=== PATIENT | female | born 1945 | race Caucasian/White ===

== ENCOUNTER 2018-10-28 13:58 | Inpatient (IN) | payer MEDICARE ==
[2018-10-28 17:33] VITALS: BMI 26.6
[2018-10-28] MEDS ORDERED: ONDANSETRON 4 MG/2 ML VIAL IVP PRN (17:53)
[2018-10-28] MEDS ORDERED: MORPHINE SULFATE 4 MG/ML SYRINGE IVP PRN (17:54)
[2018-10-28] MEDS ORDERED: MORPHINE SULFATE 2 MG/ML SYRINGE IVP PRN (18:20)
[2018-10-28] MEDS: SODIUM CHLORIDE 0.9% 1,000 ML IV SCH (19:41)
[2018-10-28] MEDS: HYDROmorphone 0.5 MG/0.5 ML SYRINGE IVP PRN (20:32)
[2018-10-28] MEDS: PIPERACILLIN-TAZOBACTAM 3.375 GM in SODIUM CHLORIDE 0.9% 100 ML IVPB SCH (22:34)
[2018-10-29] MEDS: HYDROmorphone 0.5 MG/0.5 ML SYRINGE IVP PRN ×2 (00:59→08:54)
[2018-10-29] MEDS: PIPERACILLIN-TAZOBACTAM 3.375 GM in SODIUM CHLORIDE 0.9% 100 ML IVPB SCH ×3 (06:03→20:54)
[2018-10-29] MEDS: SODIUM CHLORIDE 0.9% 1,000 ML IV SCH ×3 (06:03→23:22)
[2018-10-29 10:02] LABS: Basophils % (A) 0 %; Eosinophils % (A) 0 %; HCT 42.1 % (34.0-46.0); HGB 13.1 gm/dL (11.4-16.0); Lymphocytes # (A) 0.6 k/uL (1.0-4.8); Lymphocytes % (A) 4 %; MCH 27.9 pg (25.0-35.0); MCHC 31.2 g/dL (31.0-37.0); MCV 89.2 fL (80.0-100.0); Mean Platelet Volume 7.4; Monocytes # (A) 0.5 k/uL (0-1.0); Monocytes % (A) 4 %; Neutrophils # (A) 14.2 k/uL (1.3-7.7); Neutrophils % (A) 92 %; Platelet Count 175 k/uL (150-450); RBC 4.71 m/uL (3.80-5.40); RDW 14.6 % (11.5-15.5); WBC 15.5 k/uL (3.8-10.6)
[2018-10-29 10:14] LABS: ALT 29 U/L (9-52); AST 67 U/L (14-36); African American GFR (CKD) >90 (>60 ml/min/1.73 sqM); Albumin 3.3 g/dL (3.5-5.0); Alkaline Phosphatase 115 U/L (38-126); Anion Gap 8 mmol/L; Blood Urea Nitrogen 14 mg/dL (7-17); Calcium 8.7 mg/dL (8.4-10.2); Carbon Dioxide 25 mmol/L (22-30); Chloride 104 mmol/L (98-107); Glucose 113 mg/dL (74-99); Non-African American GFR(CKD) 87 (>60 ml/min/1.73 sqM); Potassium 4.2 mmol/L (3.5-5.1); Sodium 137 mmol/L (137-145); Total Bilirubin 0.9 mg/dL (0.2-1.3); Total Protein 6.3 g/dL (6.3-8.2)
[2018-10-29] MEDS ORDERED: HYDROmorphone 1 MG/ML 1 ML SYRINGE IVP PRN ×2 (10:39→10:59)
[2018-10-29] MEDS ORDERED: INDOCYANINE GREEN 25 MG VIAL IV STA (10:42)
[2018-10-29] MEDS ORDERED: KETOROLAC 30 MG/ML 1 ML VIAL IVP PRN (11:20)
--- NOTE | 2018-10-29 11:42 | P.GSCN ---
History of Present Illness Consult date: 10/29/18 Reason for Consult: Acute cholecystitis Requesting physician: Brandon Cummins History of present illness: CHIEF COMPLAINT: abdominal pain HISTORY OF PRESENT ILLNESS: 73-year-old female who was transferred from [facility] secondary to abdominal pain. Patient states she began having right upper quadrant pain on Saturday and was seen in the emergency room at [facility]. She was discharged home at that time. She reports her pain began again on Saturday and continued to worsen in severity. At that time she presented back to the hospital where she was transferred to [facility] after evaluation for possible cholecystitis. Patient reports nausea and episodes of emesis on Saturday. No further emesis since that time. Patient reports feeling feverish at home. She has been running low-grade temperatures since admission. Patient reports similar episode approximately 5 years ago and was told she was having a "gallbladder attack". Patient denies previous medical history. Patient denies previous surgical history. Patient denies taking any daily medications. She reports taking a multivitamin only. PAST MEDICAL HISTORY: Denies PAST SURGICAL HISTORY: Denies MEDICATIONS: Denies ALLERGIES: See list. SOCIAL HISTORY: No illicit drug use. REVIEW OF SYSTEMS: CONSTITUTIONAL: Reports fever. HEENT: Denies blurred vision, vision changes, or eye pain. Denies hemoptysis ENDOCRINE: Denies heat or cold intolerance. CARDIOVASCULAR: Denies chest pain or pressure. RESPIRATORY: No shortness of breath. GASTROINTESTINAL: See HPI for pertinent findings. NEURO: Denies history of seizures. PSYCH: No depression or suicidal ideation HEMATOLOGIC: Denies bleeding disorders. LYMPHATIC: The patient denies any lumps and bumps around the neck. GENITOURINARY: Denies any blood in urine or increased urinary frequency. MUSCULOSKELETAL: Denies myalgias. Denies joint swelling. Denies decreased range of motion beyond patients baseline. SKIN: Denies pruitis. Denies rash. PHYSICAL EXAM: VITAL SIGNS: Currently stable. GENERAL: Well-developed in no acute distress. HEENT: No sclera icterus. Extraocular movements grossly intact. Moist buccal mucosa. Head is atraumatic, normocephalic. Hears conversational speech. No nasal drainage. NECK: Supple without lymphadenopathy. CHEST: Non-labored respirations and equal bilateral excursions. CARDIOVASCULAR: Regular rate with regular rhythm. Palpable 2+ radial pulses. ABDOMEN: Soft. Nondistended. Tenderness upon palpation of right upper/mid abdominal quadrant MUSCULOSKELETAL: No clubbing, cyanosis or edema. NEUROLOGIC: No focal or lateralizing signs. Cranial nerves II through XII grossly intact. PSYCH: Appropriate affect. Alert and oriented to person, place and time. SKIN: Well perfused. Good skin turgor. LABORATORY DATA: Laboratory data reveals white count 15.5. Hemoglobin 13.1. Potassium 4.2. BUN 14. Creatinine 0.70. Bilirubin 0.9. AST 67. ALT 29. Alkaline phosphatase 115. IMAGING: Computed tomography scan of abdomen and pelvis completed at outside facility per radiology dictation reveals gallbladder at the upper limits of normal in size without gallbladder wall thickening or pericholecystic fluid. Multiple small calcified gallstones. ASSESSMENT: 1. Abdominal pain 2. Acute cholecystitis 3. Leukocytosis PLAN: 1. NPO. Continue IV fluids 2. Continue antibiotics 3. Obtain EKG 4. Pain control. Dilaudid PRN 5. Patient to undergo robotic laparoscopic assisted cholecystectomy today with Dr. Calderon Nurse practitioner note has been reviewed by physician. Signing provider agrees with the documented findings, assessment, and plan of care. Past Medical History Past Medical History: No Reported History History of Any Multi-Drug Resistant Organisms: None Reported Past Surgical History: Tonsillectomy Past Psychological History: No Psychological Hx Reported Smoking Status: Never smoker Past Alcohol Use History: None Reported Past Drug Use History: None Reported - Past Family History Father Family Medical History: Cancer Additional Family Medical History / Comment(s): of cancer lung/kidneys/brain. Mother Family Medical History: Congestive Heart Failure (CHF) Additional Family Medical History / Comment(s): of sepsis. Medications and Allergies Home Medications Medication Instructions Recorded Confirmed Type No Known Home Medications 10/28/18 10/28/18 History Allergies Allergy/AdvReac Type Severity Reaction Status Date / Time grass pollen Allergy Cough Verified 10/28/18 17:35 Surgical - Exam Vital Signs Temp Pulse Resp BP Pulse Ox 99.8 F H 92 18 154/86 94 L 10/28/18 16:46 10/28/18 16:46 10/28/18 16:46 10/28/18 16:46 10/28/18 16:46 Results - Labs 10/29/18 09:30 10/29/18 09:30 Abnormal Lab Results - Last 24 Hours (Table) 10/29/18 10/29/18 Range/Units 09:30 09:30 WBC 15.5 H (3.8-10.6) k/uL Neutrophils # 14.2 H (1.3-7.7) k/uL Lymphocytes # 0.6 L (1.0-4.8) k/uL Glucose 113 H (74-99) mg/dL AST 67 H (14-36) U/L Albumin 3.3 L (3.5-5.0) g/dL Diabetes panel 10/29/18 Range/Units 09:30 Sodium 137 (137-145) mmol/L Potassium 4.2 (3.5-5.1) mmol/L Chloride 104 (98-107) mmol/L Carbon Dioxide 25 (22-30) mmol/L BUN 14 (7-17) mg/dL Creatinine 0.70 (0.52-1.04) mg/dL Glucose 113 H (74-99) mg/dL Calcium 8.7 (8.4-10.2) mg/dL AST 67 H (14-36) U/L ALT 29 (9-52) U/L Alkaline Phosphatase 115 (38-126) U/L Total Protein 6.3 (6.3-8.2) g/dL Albumin 3.3 L (3.5-5.0) g/dL Calcium panel 10/29/18 Range/Units 09:30 Calcium 8.7 (8.4-10.2) mg/dL Albumin 3.3 L (3.5-5.0) g/dL Pituitary panel 10/29/18 Range/Units 09:30 Sodium 137 (137-145) mmol/L Potassium 4.2 (3.5-5.1) mmol/L Chloride 104 (98-107) mmol/L Carbon Dioxide 25 (22-30) mmol/L BUN 14 (7-17) mg/dL Creatinine 0.70 (0.52-1.04) mg/dL Glucose 113 H (74-99) mg/dL Calcium 8.7 (8.4-10.2) mg/dL Adrenal panel 10/29/18 Range/Units 09:30 Sodium 137 (137-145) mmol/L Potassium 4.2 (3.5-5.1) mmol/L Chloride 104 (98-107) mmol/L Carbon Dioxide 25 (22-30) mmol/L BUN 14 (7-17) mg/dL Creatinine 0.70 (0.52-1.04) mg/dL Glucose 113 H (74-99) mg/dL Calcium 8.7 (8.4-10.2) mg/dL Total Bilirubin 0.9 (0.2-1.3) mg/dL AST 67 H (14-36) U/L ALT 29 (9-52) U/L Alkaline Phosphatase 115 (38-126) U/L Total Protein 6.3 (6.3-8.2) g/dL Albumin 3.3 L (3.5-5.0) g/dL Assessment and Plan (1) Acute cholecystitis Current Visit: Yes Status: Acute Code(s): K81.0 - ACUTE CHOLECYSTITIS SNOMED Code(s): 51255223 (2) RUQ pain Current Visit: Yes Status: Acute Code(s): R10.11 - RIGHT UPPER QUADRANT PAIN SNOMED Code(s): 559849128
[2018-10-29] MEDS: PANTOPRAZOLE 40 MG/10 ML VIAL IVP SCH (11:48)
--- NOTE | 2018-10-29 12:34 | P.HPIM ---
History of Present Illness 71-year-old wasn't female was a transfer from [facility] after she presented there with the right upper quadrant abdominal pain sharp in nature severe nonradiating worsens with deep breathing. Patient started having thing this pain yesterday. Patient clinically appears to have cholecystitis and surgery was consult. Patient does have leukocytosis and mild low-grade fever and was started on Zosyn here empirically. Patient denied any diarrhea hematemesis much easier Review of Systems REVIEW OF SYSTEMS: CONSTITUTIONAL: No fever, no malaise, no fatigue. HEENT: No recent visual problems or hearing problems. Denied any sore throat. CARDIOVASCULAR: No chest pain, orthopnea, PND, no palpitations, no syncope. PULMONARY: No shortness of breath, no cough, no hemoptysis. GASTROINTESTINAL: No diarrhea, NEUROLOGICAL: No headaches, no weakness, no numbness. HEMATOLOGICAL: Denies any bleeding or petechiae. GENITOURINARY: Denies any burning micturition, frequency, or urgency. MUSCULOSKELETAL/RHEUMATOLOGICAL: Denies any joint pain, swelling, or any muscle pain. ENDOCRINE: Denies any polyuria or polydipsia. The rest of the 14-point review of systems is negative. Past Medical History Past Medical History: No Reported History History of Any Multi-Drug Resistant Organisms: None Reported Past Surgical History: Tonsillectomy Past Psychological History: No Psychological Hx Reported Smoking Status: Never smoker Past Alcohol Use History: None Reported Past Drug Use History: None Reported - Past Family History Father Family Medical History: Cancer Additional Family Medical History / Comment(s): of cancer lung/kidneys/brain. Mother Family Medical History: Congestive Heart Failure (CHF) Additional Family Medical History / Comment(s): of sepsis. Medications and Allergies Home Medications Medication Instructions Recorded Confirmed Type No Known Home Medications 10/28/18 10/28/18 History Allergies Allergy/AdvReac Type Severity Reaction Status Date / Time grass pollen Allergy Cough Verified 10/28/18 17:35 Physical Exam Vitals: Vital Signs Temp Pulse Resp BP Pulse Ox 10/29/18 08:00 20 10/29/18 04:20 99.5 F 92 20 130/74 92 L 10/28/18 21:40 99.2 F 96 20 135/79 94 L 10/28/18 16:46 99.8 F H 92 18 154/86 94 L Intake and Output 10/28/18 10/29/18 10/29/18 22:59 06:59 14:59 Intake Total 825 Balance 825 Intake: Intake, IV Titration 825 Amount Piperacillin-Tazobactam 3 25 .375 gm In Sodium Chloride 0.9% 100 ml @ 25 mls/hr IVPB Q8H HIRAM Rx#: [id number] Sodium Chloride 0.9% 1, 800 000 ml @ 100 mls/hr IV . Q10H HIRAM Rx#:[id number] Other: Voiding Method Toilet # Voids 0 Weight 74.843 kg PHYSICAL EXAMINATION: GENERAL: The patient is alert and oriented x3, not in any acute distress. Well developed, well nourished. HEENT: Pupils are round and equally reacting to light. EOMI. No scleral icterus. No conjunctival pallor. Normocephalic, atraumatic. No pharyngeal erythema. No thyromegaly. CARDIOVASCULAR: S1 and S2 present. No murmurs, rubs, or gallops. PULMONARY: Chest is clear to auscultation, no wheezing or crackles. ABDOMEN: Tenderness in the right upper quadrant positive Burleson's sign no rebound or rigidity. MUSCULOSKELETAL: No joint swelling or deformity. EXTREMITIES: No cyanosis, clubbing, or pedal edema. NEUROLOGICAL: Gross neurological examination did not reveal any focal deficits. SKIN: No rashes. Results CBC & Chem 7: 10/29/18 09:30 10/29/18 09:30 Labs: Abnormal Lab Results - Last 24 Hours (Table) 10/29/18 10/29/18 Range/Units 09:30 09:30 WBC 15.5 H (3.8-10.6) k/uL Neutrophils # 14.2 H (1.3-7.7) k/uL Lymphocytes # 0.6 L (1.0-4.8) k/uL Glucose 113 H (74-99) mg/dL AST 67 H (14-36) U/L Albumin 3.3 L (3.5-5.0) g/dL Thrombosis Risk Factor Assmnt - Choose All That Apply Any of the Below Risk Factors Present?: Yes Each Risk Factor Represents 2 Points: Age 61-74 years Thrombosis Risk Factor Assessment Total Risk Factor Score: 2 Thrombosis Risk Factor Assessment Level: Low Risk Assessment and Plan Plan: -Possible acute cholecystitis: Continue Zosyn patient was started on Toradol along with GI prophylaxis patient is already getting Dilaudid quite often. Patient undergo cholecystectomy today. -Leukocytosis: Secondary to cholecystitis -DVT prophylaxis early ambulation after surgery
[2018-10-29] MEDS ORDERED: IV FLUID CONTINUATION 1,000 ML IV ONE (13:29)
[2018-10-29] MEDS ORDERED: ONDANSETRON 4 MG/2 ML VIAL IVP ONE (13:36)
[2018-10-29] MEDS ORDERED: NEOSTIGMINE 1 MG/ML 10 ML VIAL ONE (16:31)
[2018-10-29] MEDS ORDERED: GLYCOPYRROLATE 0.2 MG/ML 2 ML VIAL ONE (16:31)
[2018-10-29] MEDS ORDERED: LIDOCAINE 1% INJ 10MG/ML (20 ML MDV) ONE (16:31)
[2018-10-29] MEDS ORDERED: HYDROmorphone (PF) 1 MG/ML ONE (16:31)
[2018-10-29] MEDS ORDERED: PROPOFOL 10 MG/ML 20 ML VIAL IV ONE (16:31)
[2018-10-29] MEDS ORDERED: ROCURONIUM BROMIDE 10 MG/ML 10 ML VIAL IV ONE (16:31)
[2018-10-29] MEDS ORDERED: ONDANSETRON 4 MG/2 ML VIAL ONE (16:31)
[2018-10-29] MEDS ORDERED: fentaNYL (PF) 50 MCG/ML 2 ML AMP ONE (16:31)
[2018-10-29] MEDS ORDERED: MIDAZOLAM 2 MG/2 ML VIAL ONE (16:31)
[2018-10-29] MEDS ORDERED: KETOROLAC 30 MG/ML 1 ML VIAL ONE (16:31)
[2018-10-29] MEDS ORDERED: SUCCINYLCHOLINE CHLORIDE 100 MG/5 ML SYR IV ONE (16:31)
[2018-10-29] MEDS ORDERED: BUPIVACAIN-EPI 0.25%-1:200,000 30 ML VIAL SQ ONE (16:45)
[2018-10-29] MEDS ORDERED: INDOCYANINE GREEN 25 MG VIAL IV ONE (16:45)
[2018-10-29] MEDS ORDERED: SODIUM CHLORIDE 0.9% 50 ML with ceFAZolin 2,000 MG IV ONE ×4 (17:06)
[2018-10-29] MEDS ORDERED: LACTATED RINGERS 1,000 ML IV ONE (18:11)
[2018-10-29] MEDS ORDERED: NALOXONE 0.4 MG/ML 1 ML VIAL IV PRN (19:42)
[2018-10-29] MEDS ORDERED: ACETAMINOPHEN TAB 325 MG TAB PO PRN (19:42)
--- NOTE | 2018-10-29 19:46 | P.OP ---
Date of Procedure: 10/29/18 Description of Procedure: Date of Procedure: 10/29/18 SURGEON: GABRIELLE CALDERON MD PREOPERATIVE DIAGNOSES: 1. Acute cholecystitis with localized peritonitis 2. Sepsis POSTOPERATIVE DIAGNOSES: 1. Acute cholecystitis with localized peritonitis 2. Sepsis 3. Purulent necrotic acute cholecystitis with localized perforation OPERATION: 1. Robotic-assisted da Pablo Xi laparoscopic cholecystectomy, multiport with FIREFLY 2. Placement of #19 Edmond-Quintero drain Anesthesia: GETA, local Surgeon: Gabrielle Calderon Estimated Blood Loss (ml): 50 Pathology: other (Gallbladder and gallbladder fluid) Condition: stable Disposition: floor OPERATIVE FINDINGS: 1. Purulent necrotic acute cholecystitis with localized perforation INDICATIONS: The patient is a 73-year-old female who presents with acute right upper quadrant abdominal pain. Surgical intervention with a laparoscopic cholecystectomy was described at length including injury to the biliary tree, bleeding, infection, need for further surgery. Informed consent was obtained. Robotic assisted laparoscopic approach was described. Benefits and risks of the procedure including but not limited to bleeding, infection, injury to the biliary tree was described. Informed consent was obtained. DESCRIPTION OF PROCEDURE: Patient was brought to the operating room, placed in supine position. After general induction, the abdomen had been prepped and draped in standard sterile fashion. The robotic da Pablo XI system was primed. After a timeout protocol was performed, the patient had been prepped and draped in standard sterile fashion. The patient was injected with indocyanine green. A 5 mm 0 degrees laparoscopic trocar entry was performed along the left upper quadrant. The abdomen insufflated to 15 mmHg pressure which she tolerated well. Diagnostic laparoscopy demonstrated no injury to bowel viscera or mesentery. The gallbladder was completely encased in omentum with localized perforation. Next, two 8 mm robotic ports were placed along the right upper abdomen. The camera 8-mm port was maintained along the epigastrium. Another 8 mm port was placed along the left upper abdominal wall after exchanging the 5 mm port. Please note that the ports were placed at least 10 to 15 cm away from the target anatomy of the gallbladder. The robot was docked along the left lateral abdomen. The patient was repositioned in reverse Trendelenburg position. Using a grasper for arm 3, a grasper for arm 4, including hook cautery for arm 1, the robotic system was docked and primed as described. Instruments were interchanged by the assistant professor of spanish including hook cautery, Bovie cautery and clip appliers. I had sat at the console. Adhesions were identified along the infundibulum of the gallbladder and addressed using hook cautery. The gallbladder fundus was retracted over the dome of the liver. Initial attention was brought to the infundibulum which was gently retracted in the inferior lateral approach. The cystic structures were completely obscured with edematous infundibulum and fatty tissue. A dome down technique was performed removing the gallbladder from the hepatic fossa. Additionally the gallbladder was intrahepatic adding complexity to the case. The gallbladder wall was completely necrotic with purulence including localized perforation to the hepatic fossa. Additionally, firefly confirmed acute cholecystitis with nonvisualization of the gallbladder. Separately with the severe edema at the cystic structures, dissection was performed at the infundibulum and prepared for resection. The port along the left upper quadrant was exchanged for a 12 mm port. A green 45 mm robotic stapler was used to divide the gallbladder at the infundibulum. Electro-Bovie cautery was used to remove the gallbladder from the hepatic fossa. Hemostasis was checked and found to be adequate. The abdomen was irrigated with 1 L normal saline until solution was clear. A round #19 drain was placed at the hepatic fossa and exited via the right lateral abdominal wall with a 2-0 nylon stitch and bulb suction. The robot was undocked. I re-scrubbed into the case. Using a 10 mm Endo Catch bag via the left upper quadrant incision, the specimen was removed from the abdominal cavity. All pneumoperitoneum instruments were evacuated from the abdominal cavity. The incisions were reapproximated using 4-0 Monocryl in an interrupted subcuticular fashion. Fascial defects were less than 8 mm in size. Please note along the trocar sites, local anesthetic was placed as a field block prior to insertion of all instruments. The skin was cleansed with dilute hydrogen peroxide. Liquid glue was applied to the skin. Optifoam dressing was placed along the left upper quadrant and JADYN drain site. At the end of the procedure needle, sponge, and instrument count had been verified correct by the surgical services assistant. The patient was transferred to postanesthesia care unit in stable condition. Console time over 90 minutes
[2018-10-29] MEDS: HEPARIN SODIUM,PORCINE 5,000 UNIT/ML 1 ML VIAL SQ SCH (23:27)
[2018-10-30] MEDS: PIPERACILLIN-TAZOBACTAM 3.375 GM in SODIUM CHLORIDE 0.9% 100 ML IVPB SCH ×3 (05:38→21:31)
[2018-10-30] MEDS: HYDROmorphone 0.5 MG/0.5 ML SYRINGE IVP PRN ×2 (05:39→11:36)
[2018-10-30] MEDS: PANTOPRAZOLE 40 MG/10 ML VIAL IVP SCH (07:57)
[2018-10-30] MEDS: HEPARIN SODIUM,PORCINE 5,000 UNIT/ML 1 ML VIAL SQ SCH ×2 (07:58→15:46)
[2018-10-30] MEDS ORDERED: HYDROcodone/APAP 5-325MG 1 EACH TAB PO PRN (08:41)
[2018-10-30 09:04] LABS: Basophils % (A) 0 %; Eosinophils % (A) 0 %; Hypochromasia Slight; Lymphocytes # (A) 0.8 k/uL (1.0-4.8); Lymphocytes % (A) 8 %; MCH 28.4 pg (25.0-35.0); MCHC 31.6 g/dL (31.0-37.0); MCV 89.8 fL (80.0-100.0); Mean Platelet Volume 8.3; Monocytes # (A) 0.5 k/uL (0-1.0); Monocytes % (A) 5 %; Neutrophils # (A) 8.8 k/uL (1.3-7.7); Neutrophils % (A) 87 %; Platelet Count 157 k/uL (150-450); RBC 4.23 m/uL (3.80-5.40); WBC 10.2 k/uL (3.8-10.6)
[2018-10-30 09:16] LABS: ALT 62 U/L (9-52); AST 98 U/L (14-36); African American GFR (CKD) >90 (>60 ml/min/1.73 sqM); Albumin 2.6 g/dL (3.5-5.0); Alkaline Phosphatase 103 U/L (38-126); Anion Gap 7 mmol/L; Blood Urea Nitrogen 18 mg/dL (7-17); Calcium 7.9 mg/dL (8.4-10.2); Carbon Dioxide 25 mmol/L (22-30); Chloride 106 mmol/L (98-107); Glucose 91 mg/dL (74-99); Magnesium 2.1 mg/dL (1.6-2.3); Non-African American GFR(CKD) 85 (>60 ml/min/1.73 sqM); Sodium 138 mmol/L (137-145); Total Bilirubin 0.7 mg/dL (0.2-1.3); Total Protein 5.4 g/dL (6.3-8.2)
--- NOTE | 2018-10-30 10:06 | P.PN ---
<Deya Vidal A - Last Filed: 10/30/18 09:59> Subjective Progress Note Date: 10/30/18 CHIEF COMPLAINT: abdominal pain HISTORY OF PRESENT ILLNESS: Patient is s/p robotic cholecystectomy. Patient was found to have cortical quadrant peritonitis and acute perforated necrotic chol ecystitis. POD #1. Patient continues to complain of pain this morning, rating 6/10, but reports it is surgical pain today and is overall improved from yesterday. He is tolerating clear liquids. Does not want diet advanced at this time. Denies nausea or vomiting. She has been up to the bathroom today to void. WBC 10.2. Hemoglobin 12.0. vital signs haven't stable. She is afebrile. PHYSICAL EXAM: VITAL SIGNS: Reviewed. GENERAL: Well-developed in no acute distress. HEENT: No sclera icterus. Extraocular movements grossly intact. Moist buccal mucosa. Head is atraumatic, normocephalic. Hears conversational speech. No nasal drainage. NECK: Supple without lymphadenopathy. CHEST: Non-labored respirations and equal bilateral excursions. CARDIOVASCULAR: Regular rate with regular rhythm. Palpable 2+ radial pulses. ABDOMEN: Soft. Nondistended. appropriate surgical tenderness. Surgical incision sites clean dry and intact without drainage or signs of infection. right-sided JADYN drain with serosanguineous drainage. MUSCULOSKELETAL: No clubbing, cyanosis or edema. NEUROLOGIC: No focal or lateralizing signs. Cranial nerves II through XII grossly intact. PSYCH: Appropriate affect. Alert and oriented to person, place and time. SKIN: Well perfused. Good skin turgor. ASSESSMENT: 1. Abdominal pain 2. Acute cholecystitis 3. Leukocytosis PLAN: 1. Continue clear liquid diet 2. Continue antibiotics 3. Incentive spirometer ordered. patient encouraged to use 10 times an hour. 4. Pain control. [place] added to regimen. Limit use of IV narcotics if patient is able to tolerate 5. Activity as tolerated Nurse practitioner note has been reviewed by physician. Signing provider agrees with the documented findings, assessment, and plan of care. Objective - Vital Signs Vital signs: Vital Signs Temp 98.1 F 10/30/18 05:15 Pulse 79 10/30/18 05:15 Resp 16 10/30/18 08:00 BP 116/72 10/30/18 05:15 Pulse Ox 99 10/30/18 05:15 Intake & Output 10/29/18 10/30/18 10/30/18 18:59 06:59 18:59 Intake Total 1550 100 Output Total 50 115 1400 Balance 1500 -15 -1400 Intake: IV 1550 100 Output: Drainage 115 Right Abdomen 115 Urine 1400 Estimated Blood Loss 50 Other: Voiding Method Toilet Toilet # Voids 1 2 # Bowel Movements 0 - Labs CBC & Chem 7: 10/30/18 08:32 10/30/18 08:32 Labs: Abnormal Lab Results - Last 24 Hours (Table) 10/29/18 10/29/18 10/30/18 Range/Units 09:30 09:30 08:32 WBC 15.5 H (3.8-10.6) k/uL Neutrophils # 14.2 H 8.8 H (1.3-7.7) k/uL Lymphocytes # 0.6 L 0.8 L (1.0-4.8) k/uL BUN (7-17) mg/dL Glucose 113 H (74-99) mg/dL Calcium (8.4-10.2) mg/dL AST 67 H (14-36) U/L ALT (9-52) U/L Total Protein (6.3-8.2) g/dL Albumin 3.3 L (3.5-5.0) g/dL 10/30/18 Range/Units 08:32 WBC (3.8-10.6) k/uL Neutrophils # (1.3-7.7) k/uL Lymphocytes # (1.0-4.8) k/uL BUN 18 H (7-17) mg/dL Glucose (74-99) mg/dL Calcium 7.9 L (8.4-10.2) mg/dL AST 98 H (14-36) U/L ALT 62 H (9-52) U/L Total Protein 5.4 L (6.3-8.2) g/dL Albumin 2.6 L (3.5-5.0) g/dL Microbiology - Last 24 Hours (Table) 10/29/18 19:14 Gram Stain - Preliminary Abdomen Wound Culture - Preliminary 10/29/18 19:14 Anaerobic Culture - Preliminary Abdomen Assessment and Plan (1) Acute cholecystitis Current Visit: Yes Status: Acute Code(s): K81.0 - ACUTE CHOLECYSTITIS SNOMED Code(s): 03277231 (2) RUQ pain Current Visit: Yes Status: Acute Code(s): R10.11 - RIGHT UPPER QUADRANT PAIN SNOMED Code(s): 746305653 <Danielle Calderon N - Last Filed: 10/30/18 22:45> Subjective Patient seen and evaluated. Drainage more serous than sanguinous. Continue IV antibiotics and JADYN drain upon discharge. Will advance diet as tolerated. Will monitor LFTs. Objective - Vital Signs Vital signs: Vital Signs Temp 99.6 F 10/30/18 20:39 Pulse 88 10/30/18 20:39 Resp 18 10/30/18 20:39 BP 122/72 10/30/18 20:39 Pulse Ox 92 L 10/30/18 20:39 Intake & Output 10/30/18 10/30/18 10/31/18 06:59 18:59 06:59 Intake Total 100 120 Output Total 115 1570 Balance -15 -1450 Weight 74.843 kg Intake: IV 100 Oral 120 Output: Drainage 115 170 Right Abdomen 115 170 Urine 1400 Other: Voiding Method Toilet # Voids 2 2 # Bowel Movements 0 - Labs CBC & Chem 7: 10/30/18 08:32 10/30/18 08:32 Labs: Abnormal Lab Results - Last 24 Hours (Table) 10/30/18 10/30/18 Range/Units 08:32 08:32 Neutrophils # 8.8 H (1.3-7.7) k/uL Lymphocytes # 0.8 L (1.0-4.8) k/uL BUN 18 H (7-17) mg/dL Calcium 7.9 L (8.4-10.2) mg/dL AST 98 H (14-36) U/L ALT 62 H (9-52) U/L Total Protein 5.4 L (6.3-8.2) g/dL Albumin 2.6 L (3.5-5.0) g/dL Microbiology - Last 24 Hours (Table) 10/29/18 19:14 Gram Stain - Preliminary Abdomen Wound Culture - Preliminary Gram Neg Bacilli 10/29/18 19:14 Anaerobic Culture - Preliminary Abdomen
[2018-10-30] MEDS: SODIUM CHLORIDE 0.9% 1,000 ML IV SCH ×2 (11:34→21:31)
[2018-10-30] MEDS: HYDROmorphone 1 MG/ML 1 ML SYRINGE IVP PRN ×2 (15:48→21:31)
--- NOTE | 2018-10-31 00:09 | P.PN ---
Subjective Progress Note Date: 10/30/18 10/30/2018 This is a 73 year old female that was admitted for acute cholecystitis and is being monitored closely. Surgery is following closely. Patient underwent a cholecystectomy early this morning and is having some pain and discomfort at the surgical sites, but states that she feels much better than last night. Patient is tolerating clear liquids and states that she has drank two glasses of ice water. Patient denies any nausea or vomiting at this time. Patient states that she was up to the bathroom twice to urinate this morning. Patient denies any bowel movements at this time as she was NPO and hasn't eaten much in the last few days due to the pain. Patient is lying flat in bed in no acute distress. Abdominal JADYN drain on the right side is noted with serous fluid. Will continue to monitor. Patient states that she is passing gas. Patient denies any shortness of breath, chest pain, or palpitations at this time. Guarded prognosis. Objective - Vital Signs Vital signs: Vital Signs Temp 99.6 F 10/30/18 20:39 Pulse 88 10/30/18 20:39 Resp 18 10/30/18 20:39 BP 122/72 10/30/18 20:39 Pulse Ox 92 L 10/30/18 20:39 Intake & Output 10/30/18 10/30/18 10/31/18 06:59 18:59 06:59 Intake Total 100 120 Output Total 115 1570 Balance -15 -1450 Weight 74.843 kg Intake: IV 100 Oral 120 Output: Drainage 115 170 Right Abdomen 115 170 Urine 1400 Other: Voiding Method Toilet # Voids 2 2 # Bowel Movements 0 - Exam This is a 73year old female lying flat in bed in no acute distress. Patients vitals are stable. BP is 116/72, pulse is 79, temp is 98.1 F, resp are 16, and oxygen saturation is 99% on 2L via NC. HEENT: Normocephalic, atraumatic. Neck is supple. Pupils are reactive. Nostrils are clear. Oral cavity is moist. Ears have no drainage. Neck: supple. No JVD noted, or thyromegaly. Chest: Trachea is central. Symmetrical expansion. Cardiac: S1 and S2 are normal with no murmurs Respiratory: Lung sounds are clear to auscultation with no wheezing noted. No use of accessory muscles. Abdomen: soft, mildly tender at the surgical sites on the right side, positive for bowel sounds in all four quadrants. Musculoskeletal: no joint swelling or deformity noted on exam. Extremities: no edema or swelling noted Nervous system: no focal deficits, gait is steady. CN1-12 intact. Patient is alert and oriented x3. Skin: no rashes or lesions noted on exam - Labs CBC & Chem 7: 10/30/18 08:32 10/30/18 08:32 Labs: Abnormal Lab Results - Last 24 Hours (Table) 10/30/18 10/30/18 Range/Units 08:32 08:32 Neutrophils # 8.8 H (1.3-7.7) k/uL Lymphocytes # 0.8 L (1.0-4.8) k/uL BUN 18 H (7-17) mg/dL Calcium 7.9 L (8.4-10.2) mg/dL AST 98 H (14-36) U/L ALT 62 H (9-52) U/L Total Protein 5.4 L (6.3-8.2) g/dL Albumin 2.6 L (3.5-5.0) g/dL Microbiology - Last 24 Hours (Table) 10/29/18 19:14 Gram Stain - Preliminary Abdomen Wound Culture - Preliminary Gram Neg Bacilli 10/29/18 19:14 Anaerobic Culture - Preliminary Abdomen Assessment and Plan Assessment: Possible acute cholecystitis: Continue on Zosyn. Patient underwent cholecystectomy this morning. Leukocytosis: Secondary to cholecystitis. current WBC is 10.2 from 15.5 yesterday Elevated liver function test: ALT is 62, AST is 98, alk phos is 103. Will continue to monitor. DVT prophylaxis with early ambulation GI prophylaxis with protonix Recommendations and discussion: Recommend to continue current medication management and symptomatic treatment. Will continue to monitor closely. Continue to encourage incentive spirometer. Guarded prognosis. Surgery is following closely. Further recommendations to follow. Possible discharge in 24-48 hours. '
[2018-10-31] MEDS: HEPARIN SODIUM,PORCINE 5,000 UNIT/ML 1 ML VIAL SQ SCH ×2 (00:14→07:09)
[2018-10-31] MEDS: HYDROmorphone 1 MG/ML 1 ML SYRINGE IVP PRN ×2 (03:33→09:30)
[2018-10-31 04:36] VITALS: BP 159/83; PULSE 83; TEMP 99.7
[2018-10-31] MEDS: PIPERACILLIN-TAZOBACTAM 3.375 GM in SODIUM CHLORIDE 0.9% 100 ML IVPB SCH ×2 (06:12→13:41)
[2018-10-31] MEDS: SODIUM CHLORIDE 0.9% 1,000 ML IV SCH (07:09)
[2018-10-31] MEDS: PANTOPRAZOLE 40 MG/10 ML VIAL IVP SCH (07:09)
[2018-10-31 07:35] VITALS: RESP 18
[2018-10-31 08:43] LABS: Basophils % (A) 0 %; Eosinophils # (A) 0.1 k/uL (0-0.7); Eosinophils % (A) 1 %; HCT 34.2 % (34.0-46.0); HGB 10.8 gm/dL (11.4-16.0); Lymphocytes # (A) 0.9 k/uL (1.0-4.8); Lymphocytes % (A) 11 %; MCH 27.4 pg (25.0-35.0); MCHC 31.5 g/dL (31.0-37.0); Mean Platelet Volume 7.6; Monocytes # (A) 0.5 k/uL (0-1.0); Monocytes % (A) 6 %; Neutrophils # (A) 6.4 k/uL (1.3-7.7); Neutrophils % (A) 81 %; Platelet Count 165 k/uL (150-450); RBC 3.93 m/uL (3.80-5.40); RDW 13.5 % (11.5-15.5); WBC 7.9 k/uL (3.8-10.6)
[2018-10-31 08:53] LABS: ALT 47 U/L (9-52); AST 57 U/L (14-36); African American GFR (CKD) >90 (>60 ml/min/1.73 sqM); Albumin 2.4 g/dL (3.5-5.0); Alkaline Phosphatase 121 U/L (38-126); Anion Gap 8 mmol/L; Blood Urea Nitrogen 11 mg/dL (7-17); Calcium 7.5 mg/dL (8.4-10.2); Carbon Dioxide 23 mmol/L (22-30); Chloride 106 mmol/L (98-107); Glucose 80 mg/dL (74-99); Non-African American GFR(CKD) >90 (>60 ml/min/1.73 sqM); Potassium 3.2 mmol/L (3.5-5.1); Sodium 137 mmol/L (137-145); Total Bilirubin 0.5 mg/dL (0.2-1.3); Total Protein 4.9 g/dL (6.3-8.2)
[2018-10-31] MEDS ORDERED: POTASSIUM CHLORIDE ER 20 MEQ TAB.ER PO STA ×2 (09:06→09:31)
--- NOTE | 2018-10-31 10:30 | P.PN ---
Subjective Progress Note Date: 10/31/18 CHIEF COMPLAINT: abdominal pain HISTORY OF PRESENT ILLNESS: Patient is s/p robotic cholecystectomy. Patient was found to have cortical quadrant peritonitis and acute perforated necrotic cholecystitis. POD #2. Patient examined this morning. She is sitting up in the chair. Emotional and tearful. She does not think she is getting better and not progressing like she should. Reassurance provided to patient. She reports her pain is 6/10. Tolerating diet but reports decreased appetite. Denies nausea or vomiting. Passing flatus. Patient with low-grade temp of 99.7 this morning. Patient reports she is using her incentive spirometer. She has a loose nonproductive cough. WBC 7.9. Hemoglobin 10.8. Potassium 3.2. Bilirubin 0.5. AST 57. ALT 47. PHYSICAL EXAM: VITAL SIGNS: Reviewed. GENERAL: Well-developed in no acute distress. HEENT: No sclera icterus. Extraocular movements grossly intact. Moist buccal mucosa. Head is atraumatic, normocephalic. Hears conversational speech. No nasal drainage. NECK: Supple without lymphadenopathy. CHEST: Non-labored respirations and equal bilateral excursions. CARDIOVASCULAR: Regular rate with regular rhythm. Palpable 2+ radial pulses. ABDOMEN: Soft. Nondistended. appropriate surgical tenderness. Surgical incision sites clean dry and intact without drainage or signs of infection. right-sided JADYN drain with serous drainage. MUSCULOSKELETAL: No clubbing, cyanosis or edema. NEUROLOGIC: No focal or lateralizing signs. Cranial nerves II through XII grossly intact. PSYCH: Appropriate affect. Alert and oriented to person, place and time. SKIN: Well perfused. Good skin turgor. ASSESSMENT: 1. Abdominal pain 2. Acute cholecystitis 3. Leukocytosis, resolved PLAN: 1. Continue diet as tolerated 2. Continue antibiotics 3. Incentive spirometer ordered. patient encouraged to use 10 times an hour. 4. Pain control. Continue [place]. Decrease IV narcotic use. 5. Activity as tolerated 6. Patient states she is not ready to be discharged today. Anticipate discharge home tomorrow. Patient will be DC home with JADYN drain and follow up with Dr. Calderon on 11/11/18 Nurse practitioner note has been reviewed by physician. Signing provider agrees with the documented findings, assessment, and plan of care. Objective - Vital Signs Vital signs: Vital Signs Temp 99.7 F H 10/31/18 04:36 Pulse 83 10/31/18 04:36 Resp 18 10/31/18 07:31 BP 159/83 10/31/18 04:36 Pulse Ox 93 L 10/31/18 04:36 Intake & Output 10/30/18 10/31/18 10/31/18 18:59 06:59 18:59 Intake Total 120 Output Total 1570 60 70 Balance -1450 -60 -70 Weight 74.843 kg Intake: Oral 120 Output: Drainage 170 60 70 Right Abdomen 170 60 70 Urine 1400 Other: Voiding Method Toilet # Voids 2 2 # Bowel Movements 0 - Labs CBC & Chem 7: 10/31/18 08:01 10/31/18 08:01 Labs: Abnormal Lab Results - Last 24 Hours (Table) 10/31/18 10/31/18 Range/Units 08:01 08:01 Hgb 10.8 L (11.4-16.0) gm/dL Lymphocytes # 0.9 L (1.0-4.8) k/uL Potassium 3.2 L (3.5-5.1) mmol/L Calcium 7.5 L (8.4-10.2) mg/dL AST 57 H (14-36) U/L Total Protein 4.9 L (6.3-8.2) g/dL Albumin 2.4 L (3.5-5.0) g/dL Microbiology - Last 24 Hours (Table) 10/29/18 19:14 Gram Stain - Preliminary Abdomen Wound Culture - Preliminary Gram Neg Bacilli Assessment and Plan (1) Acute cholecystitis Current Visit: Yes Status: Acute Code(s): K81.0 - ACUTE CHOLECYSTITIS SNOMED Code(s): 17179962 (2) RUQ pain Current Visit: Yes Status: Acute Code(s): R10.11 - RIGHT UPPER QUADRANT PAIN SNOMED Code(s): 716467476
--- NOTE | 2018-10-31 12:35 | P.DS ---
Providers Date of admission: 10/28/18 16:46 Expected date of discharge: 10/31/18 Attending physician: Brandon Cummins Consults: 10/28/18 17:51 Consult Physician Routine Consulting Provider: Danielle Calderon Consult Reason/Comments: acute cholecystitis Do you want consulting provider notified?: Yes Placement Type Exists?: Yes Primary care physician: Stated None - Discharge Diagnosis(es) (1) Acute cholecystitis Current Visit: Yes Status: Acute (2) RUQ pain Current Visit: Yes Status: Acute Hospital Course: 73-year-old female who was transferred to [facility] secondary to acute cholecystitis. Patient underwent robotic cholecystectomy. Patient was found to have cortical quadrant peritonitis and acute perforated necrotic cholecystitis. Patient has been doing well postoperatively. Her pain is controlled on oral medications. She is tolerating by mouth intake. Denies nausea or vomiting. Vital signs have been stable. White count is within normal limits. She is stable for discharge home today. Prescription sent to patient's preferred pharmacy for [place] and Augmentin. Patient is to keep JADYN drain in place until follow-up appointment with Dr. Calderon. Please see EMR for further hospital c ourse details. Discharge Diagnosis: 1. Abdominal pain 2. Acute cholecystitis 3. Leukocytosis, resolve Nurse practitioner note has been reviewed by physician. Signing provider agrees with the documented findings, assessment, and plan of care. Patient Condition at Discharge: Stable Plan - Discharge Summary Discharge Rx Participant: No New Discharge Prescriptions: New Hydrocodone/Acetaminophen [[place] 5-325] 1 tab PO Q4HR PRN 3 Days #18 tab PRN Reason: Pain Amoxic-Pot Clav 875-125Mg [Augmentin 875-125] 1 tab PO Q12HR #14 tablet Discharge Medication List Amoxic-Pot Clav 875-125Mg [Augmentin 875-125] 1 tab PO Q12HR #14 tablet 10/31/18 [Rx] Hydrocodone/Acetaminophen [[place] 5-325] 1 tab PO Q4HR PRN 3 Days #18 tab 10/31/18 [Rx] Follow up Appointment(s)/Referral(s): Danielle Calderon MD [STAFF PHYSICIAN] - 11/11/18 [facility], [NON-STAFF] - 1-2 Days Patient Instructions/Handouts: Low Fat Diet (DC), [place] Drain Care (DC), Laparoscopic Cholecystectomy (GEN) Activity/Diet/Wound Care/Special Instructions: No lifting over 10 pounds in 10 days, Nov 08. Sponge bath. Low fat diet advised. Avoid bathtub soaks or getting JADYN site wet. Discharge Disposition: HOME SELF-CARE
--- NOTE | 2018-10-31 15:29 | P.PN ---
Subjective Progress Note Date: 10/31/18 10/30/2018 This is a 73 year old female that was admitted for acute cholecystitis and is being monitored closely. Surgery is following closely. Patient underwent a cholecystectomy early this morning and is having some pain and discomfort at the surgical sites, but states that she feels much better than last night. Patient is tolerating clear liquids and states that she has drank two glasses of ice water. Patient denies any nausea or vomiting at this time. Patient states that she was up to the bathroom twice to urinate this morning. Patient denies any bowel movements at this time as she was NPO and hasn't eaten much in the last few days due to the pain. Patient is lying flat in bed in no acute distress. Abdominal JADYN drain on the right side is noted with serous fluid. Will continue to monitor. Patient states that she is passing gas. Patient denies any shortness of breath, chest pain, or palpitations at this time. Guarded prognosis. 10/31/2018 Patient is sitting up in recliner in no acute distress. Patient is currently working on her incentive spirometer. Patient is just received an IV pain medication and states the pain is much better. Patient was having severe abdominal discomfort at the site of the JADYN drain. Patient states that she is passing gas but has not had a bowel movement at this time. Patient is urinating and getting up to the bathroom. Patient states that she has not much of an appetite and so she hasn't been eating very much but is drinking plenty of water and tolerated a cup of Jell-O. Patient denies any chest pain, shortness of breath, or palpitations at this time. Patient states that she has been getting up more often and moving around. Patient is waiting for her daughter to arrive to assist with washing up. Objective - Vital Signs Vital signs: Vital Signs Temp 99.7 F H 10/31/18 04:36 Pulse 83 10/31/18 04:36 Resp 18 10/31/18 07:31 BP 159/83 10/31/18 04:36 Pulse Ox 93 L 10/31/18 04:36 Intake & Output 10/30/18 10/31/18 10/31/18 18:59 06:59 18:59 Intake Total 120 Output Total 1570 60 70 Balance -1450 -60 -70 Weight 74.843 kg Intake: Oral 120 Output: Drainage 170 60 70 Right Abdomen 170 60 70 Urine 1400 Other: Voiding Method Toilet # Voids 2 2 2 # Bowel Movements 0 - Exam This is a 73year old female sitting up in the recliner in no acute distress. P atients vitals are stable. BP is 159/83, pulse is 83, temp is 99.7 F, resp are 24, and oxygen saturation is 93% on room air HEENT: Normocephalic, atraumatic. Neck is supple. Pupils are reactive. Nostrils are clear. Oral cavity is moist. Ears have no drainage. Neck: supple. No JVD noted, or thyromegaly. Chest: Trachea is central. Symmetrical expansion. Cardiac: S1 and S2 are normal with no murmurs Respiratory: Lung sounds are clear to auscultation with no wheezing noted. No use of accessory muscles. Abdomen: soft, mildly tender at the surgical sites on the right side, positive for bowel sounds in all four quadrants. JADYN drain noted on the right side. Musculoskeletal: no joint swelling or deformity noted on exam. Extremities: no edema or swelling noted. Legs are elevated up on a stool with SCDs present Nervous system: no focal deficits, gait is steady. CN1-12 intact. Patient is alert and oriented x3. Skin: no rashes or lesions noted on exam - Labs CBC & Chem 7: 10/31/18 08:01 10/31/18 08:01 Labs: Abnormal Lab Results - Last 24 Hours (Table) 10/31/18 10/31/18 Range/Units 08:01 08:01 Hgb 10.8 L (11.4-16.0) gm/dL Lymphocytes # 0.9 L (1.0-4.8) k/uL Potassium 3.2 L (3.5-5.1) mmol/L Calcium 7.5 L (8.4-10.2) mg/dL AST 57 H (14-36) U/L Total Protein 4.9 L (6.3-8.2) g/dL Albumin 2.4 L (3.5-5.0) g/dL Microbiology - Last 24 Hours (Table) 10/29/18 19:14 Gram Stain - Preliminary Abdomen Wound Culture - Preliminary Gram Neg Bacilli Assessment and Plan Assessment: Possible acute cholecystitis: Continue on Zosyn. Patient underwent cholecystectomy yesterday. Leukocytosis: Secondary to cholecystitis. current WBC is 7.9 from 10.2 yesterday Elevated liver function test: ALT is 57, AST is 47, alk phos is 121. Improving. Hypokalemia: 3.2. Will be replaced DVT prophylaxis with early ambulation and SCDs GI prophylaxis with protonix Recommendations and discussion: Recommend to continue current medication management and symptomatic treatment. Will continue to monitor closely. Continue to encourage incentive spirometer. Encouraged early ambulation. Guarded prognosis. Surgery is following closely. Further recommendations to follow. Possible discharge today, awaiting surgery clearance.
[2018-11-01] MEDS ORDERED: PANTOPRAZOLE 40 MG TABLET PO SCH (07:30)
--- NOTE | 2018-11-03 09:28 | CDI ---
Documentation Clarification Form Date: 11/03/18 From: Sapna Uribe Phone: If you have a question regarding this query, please contact Adriana Florez at [phone] between 8am and 5pm. Admit Date: 10/28/2018 4:46:00 PM Patient Name: Karlene Whalen Visit Number: [id number] Discharge Date: 10/31/2018 2:59:00 PM ATTENTION: The Clinical Documentation Specialists (CDI) and [facility] Coding Staff appreciate your assistance in clarifying documentation. Please respond to the clarification below the line at the bottom and electronically sign. The CDI & [facility] Coding staff will review the response and follow-up if needed. Please note: Queries are made part of the Legal Health Record. If you have any questions, please contact the author of this message via ITS. Dr. Sidney Velez The patient presented with acute cholecystitis. Dr. Calderon documented sepsis in the procedure note but sepsis was not documented consistently throughout the chart. History/Risk Factors: Acute perforated, necrotic cholecystitis with peritonitis. Clinical Indicators: Leukocytosis. WBC: 15.5 Lactic acid: Not tested. Blood cultures: Not tested. Vitals signs on admission: T. 99.8, P. 92, R. 18, BP 154/86 Antibiotics: IV Cefazolin, IV Zosyn IV Bolus: No bolus, IV sodium chloride at 100 mls/hr In your professional opinion, please clarify if these findings signify one of the following conditions Condition Sepsis ruled out SIRS, without underlying infectious process Severe Sepsis Septic Shock Other, please specify Unable to determine Present on Admission Yes No Sepsis MTDD
== END 2018-10-31 14:59 | disposition home health service (06) | DRG 853 ==
LOC: 4MS4W 16:46 → 3NMEDONC 10-30 14:13
PROVIDERS: ADMIT Internal Medicine; ATTEND Internal Medicine
PROC: 8E0W4CZ Robotic Assisted Procedure of Trunk Region, Percutaneous Endoscopic Approach (ICD-10-PCS; 2018-10-29)
PROC: 0FT44ZZ Resection of Gallbladder, Percutaneous Endoscopic Approach (ICD-10-PCS; principal; 2018-10-29 08:10)
DX: A41.9 Sepsis, unspecified organism (principal); K65.9 Peritonitis, unspecified; K81.0 Acute cholecystitis; K82.A2 Perforation of gallbladder in cholecystitis; K82.A1 Gangrene of gallbladder in cholecystitis; E87.6 Hypokalemia; Z91.048 Other nonmedicinal substance allergy status; Z80.1 Family history of malignant neoplasm of trachea, bronchus and lung; Z82.49 Family history of ischemic heart disease and other diseases of the circulatory system; Z80.51 Family history of malignant neoplasm of kidney; Z80.8 Family history of malignant neoplasm of other organs or systems
CPT/HCPCS: 80053; 83735; 85025; 87070; 87075; 87077; 87186; 87205; 88304

== ENCOUNTER → 2024-02-21 | Outpatient (CLI) | payer MEDICARE ==
[2024-02-21 10:04] LABS: INR 0.8 (<1.2); Partial Thromboplastin Time 23.6 sec (22.0-30.0); Prothrombin Time 9.6 sec (10.0-12.5)
[2024-02-21 15:26] LABS: HCT 44.4 % (37.2-46.3); HGB 14.1 g/dL (12.0-15.0); MCH 28.5 pg (27.0-32.0); MCHC 31.8 g/dL (32.0-37.0); MCV 89.7 FL (80.0-97.0); Mean Platelet Volume 10.5 FL (9.5-12.2); NRBC Per 100 WBC 0 X 10*3/uL (0.00-0.01); Platelet Count 278 X 10*3/uL (140-440); RBC 4.95 X 10*6/uL (4.10-5.20); RDW 13.1 % (11.5-14.5); WBC 5.35 X 10*3/uL (4.50-10.00)
[2024-02-21 16:09] LABS: ALT 24 U/L (8-44); AST 29 U/L (13-35); Albumin 4.5 g/dL (3.8-4.9); Albumin/Globulin Ratio 1.61 Ratio (1.60-3.17); Alkaline Phosphatase 135 U/L (41-126); Blood Urea Nitrogen 13.6 mg/dL (9.0-27.0); Calcium 9.5 mg/dL (8.7-10.3); Carbon Dioxide 25.2 mmol/L (21.6-31.8); Chloride 104 mmol/L (96-109); Globulin 2.8 g/dL (1.6-3.3); Glucose 95 mg/dL (70-110); Sodium 141 mmol/L (135-145); Total Bilirubin 0.5 mg/dL (0.3-1.2); Total Protein 7.3 g/dL (6.2-8.2)
== END | disposition home or self-care (01) ==
LOC: LABPAT 09:01
PROVIDERS: ATTEND Orthopaedic Surgery
DX: Z01.818 Encounter for other preprocedural examination (principal); Z22.322 Carrier or suspected carrier of Methicillin resistant Staphylococcus aureus; M16.11 Unilateral primary osteoarthritis, right hip
CPT/HCPCS: 80053; 85027; 85610; 85730; 86850; 86900; 86901; 87070; 93005

== ENCOUNTER 2024-03-02 05:39 | Day surgery (SDC) | payer MEDICARE ==
[~2024-03-02 05:39] MED LIST: TRANEXAMIC 1,000 MG/100ML-NACL 1,000 MG in SALINE 1 100ML.BAG IVPB PRN
[2024-03-02] MEDS: ACETAMINOPHEN TAB 500 MG TAB PO PRN (06:16)
[2024-03-02] MEDS: MELOXICAM 7.5 MG TAB PO PRN (06:16)
[2024-03-02] MEDS: GABAPENTIN 300 MG CAP PO PRN (06:16)
[2024-03-02] MEDS: LACTATED RINGERS 1,000 ML BAG IV STA (06:17)
[2024-03-02] MEDS: LIDOCAINE 1% (10MG/ML) FOR IV START INTRADERMA STA (06:17)
[2024-03-02] MEDS: ONDANSETRON 4 MG/2 ML VIAL IVP STA (06:18)
[2024-03-02] MEDS: DEXAMETHASONE SOD PHOSPHATE 4 MG/ML 1 ML VIAL IVP STA (06:18)
[2024-03-02] MEDS: IV FLUID CONTINUATION 1,000 ML IV ONE (06:20)
[2024-03-02] MEDS: MIDAZOLAM 2 MG/2 ML VIAL IV ONE (06:35)
[2024-03-02] MEDS: ceFAZolin 1,000 MG in SODIUM CHLORIDE 0.9% 1,000 ML IRRIGATION ONE (06:59)
[2024-03-02] MEDS: ROPIVACAINE 5 MG/ML 30 ML VIAL MISCELLANE ONE ×2 (07:27→08:00)
--- NOTE | 2024-03-02 08:06 | P.OP ---
Date of Procedure: 03/02/24 Preoperative Diagnosis: Severe osteoarthritis right hip Postoperative Diagnosis: Severe osteoarthritis right hip Procedure(s) Performed: Right total hip arthroplasty with a direct anterior approach Implants: [employer] Polarstem standard size 5 with a collar [employer] R3, 3 hole hemispherical acetabular shell, 52 mm [employer] Reflection 6.5 mm cancellus screws, 20 mm, 25 mm [employer] R3, XLPE 20 acetabular liner [employer] Oxinium femoral head 36 mm, +4 All components were press-fit. The articulation is Oxinium on polyethylene. Anesthesia: spinal Surgeon: Wesly Waters Loading Manager #1: Ca Daniel Estimated Blood Loss (ml): 150 Pathology: none sent Condition: stable Disposition: PACU Indications for Procedure: After failure of conservative treatment we discussed the surgical and nonsurgical treatment options at length. Patient wishes to proceed with a total hip arthroplasty with a direct anterior approach. Complications specific to this procedure were discussed at length, including but not limited to infection, leg length discrepancy, dislocation, nerve injury, and fracture. Covid-19 was also discussed at length with the patient, and they are aware of the current policies and procedures. The patient was given the option of delaying surgery, but they elect to proceed knowing these risks. Patient is aware of all these complications and informed consent was obtained Operative Findings: The operative findings are consistent with severe osteoarthritis of the right hip Description of Procedure: The patient was seen and evaluated in the preoperative area and the consent was reviewed. The operative site was marked with a skin marker. The patient verified the procedure and operative site. A WILLY block was placed by anesthesia in the preoperative area. The patient was then brought to the operating room and given preoperative antibiotics intravenously. 1 g of Tranexamic acid was also given intravenously. A spinal anesthetic was administered by the anesthesia department. The patient was then placed on the [place] table with the bony prominences well-padded. The hip area was then prepped with a ChloraPrep solution and draped in the usual sterile fashion. A universal timeout was then performed, which confirmed the patient's name, surgical site, ALLERGIES, and procedure being performed on the consent. Next the incision site was located at 1 cm distal and 4 cm lateral to the anterior superior iliac spine. The skin and subcutaneous tissues were sharply incised. Incision was carefully dissected down to the fascia overlying the tensor fascia abhishek muscle. This fascia was then incised in line with the muscle fibers. Care was taken to stay laterally in order to avoid injuring the lateral femoral cutaneous nerve. Next, using blunt finger dissection, the tensor fascia abhishek muscle was dissected off its investing fascia. The muscle was then carefully retracted laterally with a cobra retractor over the lateral neck of the femur. Next, the circumflex vessels were identified and cauterized using the Aquamantis device. The anterior hip capsule was then exposed. The capsule was then opened and an inverted T fashion. The retractors were then placed intracapsularly. The retractors were maintained intracapsular throughout the procedure. The proximal femur was then visualized. Fluoroscopic x-rays were then taken in order to evaluate the preoperative leg lengths. A small amount of traction was placed on the leg. The femoral neck was then osteotomized at the appropriate level above the lesser trochanter. A small wedge of bone was then removed from the remaining femoral head. Next, using a corkscrew the femoral head was removed from the acetabulum. On gross visual inspection, the femoral head had complete loss of articular cartilage and multiple periarticular osteophytes. The femoral head was then measured. Attention was then turned to the acetabulum. The acetabulum was exposed and any remaining labrum was excised. Sequential reaming of the acetabulum was performed using fluoroscopic guidance until there was a good bed of bleeding cancellus bone. When the appropriate size was reached, a trial was then placed. The position and fit of the trial was checked with fluoroscopy. The trial was then removed. Then, using fluoroscopic guidance, the final implant was impacted at 20 of anteversion and 40 of abduction, and fully seated in the acetabulum. 2 screws were then placed in the acetabulum. Again fluoroscopy was used to check position of the screws. Next, the liner was then impacted, with a 20 elevated liner located in the anterior superior quadrant. Component locking was confirmed. Attention was then directed to the femur. With the aid of the [place] table, the femur was externally rotated to approximately 130, extended, and adducted under the opposite leg. A side hook was then placed under the proximal femur, and the side hook elevator was used to elevate the proximal femur while releasing the capsule. Retractors were then placed. A capsular release was performed, as well as a release of the conjoined tendon, which afforded excellent visualization of the proximal femur. Next, a box osteotome was used to lateralize the proximal femur. A hand singer was then used to locate the femoral canal. Sequential broaching was then performed with appropriate size which afforded excellent fixation in the proximal femur. A trial was then placed with appropriate head and neck, and the hip was gently reduced with the aid of the [place] table. Fluoroscopy was then used to check position of the components, as well as to evaluate the leg lengths and offset. The leg lengths and offset were measured as closely as possible to ensure stability of the hip. The hip was then gently dislocated and the trials were then removed. Final implants were then impacted and the hip was again reduced. Final fluoroscopic x-rays confirmed that the components were in anatomic position. The leg lengths and offset were measured and were found to coincide with the trial measurements. The hip was also taken through range of motion, and found to be stable. The hip was then copiously irrigated with antibiotic solution with pulsatile lavage. The hip was then irrigated with Irrisept solution. The soft tissues were then injected with a ropivacaine solution. A second dose of 1 g of Tranexamic acid was also given intravenously. The fascia was then closed with 2-0 strata fix suture. The subcutaneous tissue was closed with 3-0 Vicryl. The subcuticular tissue was closed with 3-0 moncryl suture. The skin was then closed with Exofin skin glue. After the glue and dried, and Optifoam silver impregnated dressing was applied. The patient was then transferred to the recovery room in stable condition. The orthotics assistant NITESH Bryson was required due to the complexity of surgery, and the need for skilled litigation legal assistant for positioning, draping, exposure, retraction, and closure of the wound.
[2024-03-02] MEDS: LACTATED RINGERS 1,000 ML IV ONE (08:11)
--- NOTE | 2024-03-02 08:26 | FL ---
EXAMINATION TYPE: FL guidance operating room, XR Hip Limited RT DATE OF EXAM: 03/02/2024 8:12 AM COMPARISON: Pre Operative Images if available both CT/MRI or plain film CLINICAL INDICATION: Female, 78 years old with history of RIGHT ANTERIOR HIP; TECHNIQUE: FL guidance operating room, XR Hip Limited RT, multiple fluoroscopic images provided for p rocedure. Total fluoroscopy time: 23.1 seconds Total submitted images to PACS: 3 DAP: 1.0493 mGym2 Gycm2 uGym2 cGycm2 or equivalent. FINDINGS: Fluoroscopic images during internal fixation/arthroplasty demonstrate hardware in appropriate positio n. Hardware appears intact. No immediate complication identified. IMPRESSION: 1. No evidence for intraoperative complication. 2. Please see the operative/procedural note for further details. [facility], , 03/02/2024 8:24 AM
--- NOTE | 2024-03-02 08:32 | P.ANPRN ---
Procedure Note - Anesthesia - Epidural/Spinal Spinal Time Out Performed: Yes Date of Procedure: 03/02/24 Procedure Start Time: 07:05 Procedure Stop Time: 07:08 Location of Patient: OR Indication: Analgesia Sedation Type: Sedate with meaningful contact maintained Preparation: Sterile Prep Position: Sitting Needle Guage: 25 Blood Aspirated: No Pain Paresthesia on Injection Noted: No Events: Uneventful and Well Tolerated (intrathecal Bupivacine 0.75% 1.5 ml injected for intraop anesthesia)
--- NOTE | 2024-03-02 08:32 | P.ANPRN ---
Procedure Note - Anesthesia - Nerve Block Performed Right Anish Single Time Out Performed: Yes Date of Procedure: 03/02/24 Procedure Start Time: 06:35 Procedure Stop Time: 06:40 Location of Patient: PreOp Indication: Acute Post-Operative Pain, Analgesia, Requested by Surgeon Sedation Type: Sedate with meaningful contact maintained Preparation: Sterile Prep Position: Supine Needle Types: Pajunk Needle Gauge: 21 Ultrasound used to visualize needle placement: Yes Ultrasound used to observe medication spread: Yes Injectate: 0.5% Ropivacaine (see comment for volume) (Ropiv 20ml+[id number]) Blood Aspirated: No Pain Paresthesia on Injection Noted: No Resistance on Injection: Normal Image Stored and Saved: Yes Events: Uneventful and Well Tolerated
[2024-03-02] MEDS ORDERED: NALOXONE 0.4 MG/ML 1 ML VIAL IV PRN (08:33)
[2024-03-02] MEDS ORDERED: MAGNESIUM HYDROXIDE 2,400 MG/30 ML CUP PO PRN (08:33)
[2024-03-02] MEDS ORDERED: HYDROmorphone 0.5 MG/0.5 ML SYRINGE IVP PRN ×3 (08:33)
[2024-03-02] MEDS ORDERED: ONDANSETRON 4 MG/2 ML VIAL IVP PRN (08:33)
[2024-03-02] MEDS ORDERED: HYDROcodone/APAP 7.5-325MG 1 EACH TAB PO PRN ×2 (08:36)
--- NOTE | 2024-03-02 09:05 | XR ---
EXAMINATION TYPE: XR Hip Limited RT DATE OF EXAM: 03/02/2024 8:50 AM COMPARISON: None CLINICAL INDICATION: Female, 78 years old with history of Status post hip surgery, assess surgical al ignment, , FINDINGS: Image shows placement of right total hip arthroplasty. Acetabular cup and femoral stem components of prosthesis are well seated without periprosthetic fracture. Alignment grossly anatomic. Soft tissue a ir related to recent operation. IMPRESSION: Uncomplicated postoperative appearance right total hip arthroplasty. [facility], , 03/02/2024 9:02 AM
[2024-03-02] MEDS: SODIUM CHLORIDE 0.9% 1,000 ML IV SCH (12:44)
[2024-03-02] MEDS: ACETAMINOPHEN TAB 325 MG TAB PO PRN (16:14)
[2024-03-02] MEDS: ATORVASTATIN 80 MG TAB PO SCH (21:37)
[2024-03-02] MEDS: EZETIMIBE 10 MG TAB PO SCH (21:37)
[2024-03-02] MEDS: METOPROLOL TARTRATE 25 MG TAB PO SCH (21:37)
[2024-03-02] MEDS: SENNOSIDES-DOCUSATE SODIUM 1 EACH TAB PO SCH (21:37)
[2024-03-02] MEDS: ASPIRIN 81 MG PO SCH (21:37)
--- NOTE | 2024-03-02 22:40 | P.CONS ---
History of Present Illness - Reason for Consult Consult date: 03/02/24 Medical management - Chief Complaint Right total hip arthroplasty - History of Present Illness Patient is a 78-year-old female with a past medical history of hyperlipidemia, varicose veins status post surgery and wears compression stocks., History of loop recorder placement was admitted to the hospital for elective right left total hip arthroplasty. Patient does have severe osteoarthritis of the right hip. Currently patient is able to ambulate to the bathroom with support. Pain is fairly controlled. On nerve block. Postoperatively blood pressure went down to 82/50 pulse 79 respiration 10 pulse ox 94%. Currently blood pressure improved. Otherwise patient denied any dizziness or lightheadedness. No chest pain or shortness of breath. No nausea or vomiting. Laboratory data is not available at this time. Review of Systems Constitutional: Patient denies any fever or chills . No generalized weakness or weight loss. Abdomen: Patient denied nausea vomiting and diarrhea and abdominal pain. Cardiovascular: Patient denies any chest pain or short of breath no palpitations. Respiratory: patient denied any cough or sputum production. No shortness of breath Neurologic: Patient denied any numbness or tingling. no headache. Musculoskeletal: Patient denies any complaints of joint swelling or deformity. Skin: Negative Psychiatric: Negative Endocrine: No heat or cold intolerance. No recent weight gain. Genitourinary: No dysuria or hematuria. All other 14 point ROS negative except the above Past Medical History Past Medical History: Hyperlipidemia, Vascular Disorder Additional Past Medical History / Comment(s): loop recorder in place, elevated heart rate at time rt leg has some swelling from varicose vein surgery wear compression socks, nervous stomach, History of Any Multi-Drug Resistant Organisms: None Reported Past Surgical History: Cholecystectomy, Tonsillectomy Additional Past Surgical History / Comment(s): priyanka cataract removal Additional Past Anesthesia/Blood Transfusion Reaction / Comm: no blood transfusion hx. Past Psychological History: No Psychological Hx Reported Smoking Status: Never smoker Past Alcohol Use History: None Reported Past Drug Use History: None Reported - Past Family History Father Family Medical History: Cancer Additional Family Medical History / Comment(s): of cancer lung/kidneys/brain. Mother Family Medical History: Congestive Heart Failure (CHF) Additional Family Medical History / Comment(s): of sepsis. Medications and Allergies Home Medications Medication Instructions Recorded Confirmed Type Atorvastatin [Lipitor] 80 mg PO HS 02/25/24 02/25/24 History Clopidogrel [Plavix] 75 mg PO HS 02/25/24 02/25/24 History Ezetimibe [Zetia] 10 mg PO HS 02/25/24 02/25/24 History Metoprolol Tartrate 25 mg PO HS 02/25/24 02/25/24 History Aspirin [Adult Low Dose Aspirin EC] 81 mg PO BID 30 Days #60 tab 03/02/24 Rx HYDROcodone/APAP 7.5-325MG [[place] 1 - 2 tab PO Q6H PRN #32 tab 03/02/24 Rx 7.5-325] Sennosides [Senokot] 2 tab PO DAILY PRN #60 tablet 03/02/24 Rx Allergies Allergy/AdvReac Type Severity Reaction Status Date / Time grass pollen Allergy Cough Verified 03/02/24 05:57 Physical Exam Vitals: Vital Signs Temp Pulse Pulse Resp BP BP Pulse Ox 03/02/24 11:56 65 16 114/65 97 03/02/24 11:26 73 16 112/54 95 03/02/24 10:56 68 16 115/62 98 03/02/24 10:26 73 16 114/58 100 03/02/24 10:11 58 L 16 115/59 100 03/02/24 09:56 53 L 16 111/59 100 03/02/24 09:41 51 L 16 109/58 100 03/02/24 09:26 61 16 101/57 100 03/02/24 09:11 67 16 102/61 100 03/02/24 08:56 70 16 94/54 100 03/02/24 08:41 73 88/52 98 03/02/24 08:26 97.3 F L 79 10 L 82/50 94 L 03/02/24 06:42 82 16 122/65 93 L 03/02/24 06:20 97.0 F L 91 16 139/73 96 Intake and Output 03/01/24 03/02/24 03/02/24 22:59 06:59 14:59 Intake Total 1051 875 Output Total 150 Balance 1051 725 Intake: IV 1051 875 Output: Estimated Blood Loss 150 Other: Weight 73.3 kg 73.3 kg PHYSICAL EXAMINATION: Patient is lying in the bed comfortably, no acute distress, awake alert and oriented.. HEENT: Normocephalic. Neck is supple. Pupils reactive. Nostrils clear. Oral cavity is moist. Neck reveals no JVD, carotid bruits, or thyromegaly. CHEST EXAMINATION: Trachea is central. Symmetrical expansion. Lung [place] clear to auscultation and percussion. CARDIAC: Normal S1, S2 with no gallops. No murmurs ABDOMEN: Soft. Bowel sounds normal. No organomegaly. No abdominal bruits. Extremities: reveal no edema. No clubbing or cyanosis Neurologically awake, alert, oriented x3 with well-coordinated movements. No focal deficits noted Skin: No rash or skin lesions. Psychiatric: Coperative. Nonsuicidal Musculoskeletal: No joint swelling or deformity. Normal range of motion. Assessment and Plan Assessment: Status post right total hip arthroplasty postoperative day 0 Hyperlipidemia Varicose veins status, with surgery. History of loop recorder placement GI and DVT prophylaxis Plan: Patient will be continued on pain management, bowel regimen, encouraging sy incentive spirometry. Encourage oral intake. Continue to monitor blood pressure. Follow-up CBC and BMP tomorrow. Start back on Lipitor, Zetia. Started back on Plavix. Patient is also on aspirin 81 mg twice daily. Continue with home medications including metoprolol. Further recommendations based on clinical course. Thank you kindly for your consult.
[2024-03-03] MEDS: CLOPIDOGREL 75 MG TAB PO SCH (08:32)
[2024-03-03 08:36] LABS: Basophils # (A) 0.01 X 10*3/uL (0.00-0.10); Basophils % (A) 0.1 %; Eosinophils # (A) 0 X 10*3/uL (0.04-0.35); Eosinophils % (A) 0 %; HGB 10.8 g/dL (12.0-15.0); Lymphocytes # (A) 1.07 X 10*3/uL (0.90-5.00); Lymphocytes % (A) 9.4 %; MCH 27.6 pg (27.0-32.0); MCHC 31.8 g/dL (32.0-37.0); Mean Platelet Volume 10.5 FL (9.5-12.2); Monocytes # (A) 0.91 X 10*3/uL (0.20-1.00); NRBC Per 100 WBC 0 X 10*3/uL (0.00-0.01); Neutrophils # (A) 9.38 X 10*3/uL (1.80-7.70); Neutrophils % (A) 82.2 %; Platelet Count 200 X 10*3/uL (140-440); RBC 3.91 X 10*6/uL (4.10-5.20)
[2024-03-03 08:39] LABS: BUN/Creat Ratio 18.86 Ratio (12.00-20.00); Blood Urea Nitrogen 13.2 mg/dL (9.0-27.0); Calcium 8.6 mg/dL (8.7-10.3); Carbon Dioxide 21.9 mmol/L (21.6-31.8); Chloride 108 mmol/L (96-109); Glucose 113 mg/dL (70-110); Potassium 4.4 mmol/L (3.5-5.5); Sodium 140 mmol/L (135-145)
--- NOTE | 2024-03-03 09:03 | P.DS ---
Providers Expected date of discharge: 03/03/24 Attending physician: Wesly Waters Consults: 03/02/24 08:33 Consult Physician Routine Consulting Provider: Dewayne Davis Consult Reason/Comments: medical management Do you want consulting provider notified?: Yes Primary care physician: Stated None - Discharge Diagnosis(es) (1) Osteoarthritis of right hip Current Visit: Yes Status: Acute (2) S/P total right hip arthroplasty Current Visit: Yes Status: Acute Hospital Course: This is a 78-year-old female with known history of degenerative arthritis of the right hip. The patient presented for evaluation as an outpatient. After discussion and consideration patient elects to proceed with total hip arthroplasty. The patient is seen preoperatively by Dr. Waters and medically cleared for surgery by their primary care physician. Patient is admitted to [facility] on 03/02/2024 for total hip arthroplasty. The procedure is performed without complication or sequelae. The patient is doing well postoperatively. Labs and vital signs are stable on day of discharge. On day of discharge patient's hip incision is healing well. There is minimal erythema. There is no drainage noted at this time. There is minimal soft tissue swelling to the hip and thigh. Patient has full foot and ankle motion without difficulty or pain. Calf is soft and nontender to palpation. Neurovascular status to the right lower extremity is intact. Patient is discharged home in good condition. Please see med rec for accurate list of home medications. Plan - Discharge Summary Discharge Rx Participant: Yes New Discharge Prescriptions: New Sennosides [Senokot] 2 tab PO DAILY PRN #60 tablet PRN Reason: Constipation Aspirin [Adult Low Dose Aspirin EC] 81 mg PO BID 30 Days #60 tab HYDROcodone/APAP 7.5-325MG [[place] 7.5-325] 1 - 2 tab PO Q6H PRN #32 tab PRN Reason: Pain No Action Metoprolol Tartrate 25 mg PO HS Ezetimibe [Zetia] 10 mg PO HS Clopidogrel [Plavix] 75 mg PO HS Atorvastatin [Lipitor] 80 mg PO HS Discharge Medication List Atorvastatin [Lipitor] 80 mg PO HS 02/25/24 [History] Clopidogrel [Plavix] 75 mg PO HS 02/25/24 [History] Ezetimibe [Zetia] 10 mg PO HS 02/25/24 [History] Metoprolol Tartrate 25 mg PO HS 02/25/24 [History] Aspirin [Adult Low Dose Aspirin EC] 81 mg PO BID 30 Days #60 tab 03/02/24 [Rx] HYDROcodone/APAP 7.5-325MG [[place] 7.5-325] 1 - 2 tab PO Q6H PRN #32 tab 03/02/24 [Rx] Sennosides [Senokot] 2 tab PO DAILY PRN #60 tablet 03/02/24 [Rx] Follow up Appointment(s)/Referral(s): Wesly Waters DO [Doctor of Osteopathic Medicine] - 2 Weeks Activity/Diet/Wound Care/Special Instructions: Weightbearing as tolerated with walker. Leave dressing intact. Dressing may be removed by home care nurse or by patient in 7 days. Then change dressing twice daily until follow up. May shower with initial dressing intact and after removal. If dressing become saturated, please remove. Please resume Plavix and take aspirin 81mg twice daily for 30 days to prevent blood clots. Recommend use of compression stockings daily until follow up to help prevent swelling and blood clots. May remove at night before sleeping. Please follow[facility]up with [facility] weeks and call with any questions or concerns, . Discharge Disposition: HOME WITH HOME HEALTH SERVICES
[2024-03-03 10:29] VITALS: BP 112/62; PULSE 70; RESP 18; TEMP 97.5
== END 2024-03-03 12:35 | disposition home health service (06) ==
LOC: OR 05:39 → 4SSUR 08:21 → OR 03-03 12:35
PROVIDERS: ATTEND Orthopaedic Surgery
DX: M16.11 Unilateral primary osteoarthritis, right hip (principal); I10 Essential (primary) hypertension; E78.5 Hyperlipidemia, unspecified; Z86.73 Personal history of transient ischemic attack (TIA), and cerebral infarction without residual deficits; Z87.442 Personal history of urinary calculi; Z79.02 Long term (current) use of antithrombotics/antiplatelets; Z79.82 Long term (current) use of aspirin; Z79.899 Other long term (current) drug therapy
CPT/HCPCS: 27130; 97161; 97166; 80048; 85025; 73501; J2250; J1100; J0690 ×2; J2405; J2795; 64999